=== PATIENT | female | born 1990 | race Caucasian/White ===

== ENCOUNTER 2020-09-21 17:31 | Inpatient (IN) | payer OTHER ==
[2020-09-21] MEDS ORDERED: Sodium Chloride 0.9% 10 ML Syringe FLUSH PRN (19:02)
[2020-09-21] MEDS ORDERED: Ondansetron 4 MG/2 ML SDV IV PRN (19:02)
[2020-09-21] MEDS ORDERED: Calcium Carbonate 500 MG Tab.Chew PO PRN (19:02)
[2020-09-21] MEDS ORDERED: Penicillin G Potassium 5 MILLUNITS in Sodium Chloride 0.9% 50 ML IV ONE (19:11)
[2020-09-21] MEDS ORDERED: fentaNYL 100 MCG/2 ML SDV IVPUSH PRN (19:12)
[2020-09-21] MEDS ORDERED: Lactated Ringers 1,000 ML IV SCH (19:15)
--- NOTE | 2020-09-21 19:53 | PCM.LDHP ---
L&D History of Present Illness - General Date of Service: 09/21/20 Admit Problem/Dx: Patient Status Order with Admit Dx/Problem 09/21/20 19:02 Patient Status [ADT] Routine Admission Diagnosis/Problem Admission Diagnosis/Problem Term Source of Information: Patient History Limitations: Reports: No Limitations - History of Present Illness Introduction:: 09/21/20 Jacquie is a at 40 3/7 weeks in latent labor. AKIL 09/18/20 based off LMP, dates closely matched with 19 week US. She has had very limited clinic based OB care. She has been seeing a home overlock elastic attacher, Bernarda Pack, for this . She states her contractions started at midnight Monday morning. Around 3 am she had a contraction and a small gush of clear fluid. Contractions were anywhere from 3-30 min apart since Monday at midnight and she has continued to leak fluid. She called the overlock elastic attacher to the house today due to exhaustion and continued irregular contractions. A fill in overlock elastic attacher thought her cervix was either 3cm or 10 cm but could not tell and recommended she go to the hospital for evaluation. Patient reports not eating or drinking much since Monday am. She did not have GBS swab done. She did have first trimester labs completed along with an US at 19 weeks gestation that showed no abnormalities but there is limited views of cardiac structures and facial profile. Other labs: Hepatitis B/C/HIV/RPR all non reactive. O positive blood type, negative antibody. Rubella immune. Chlamydia/gonorrhea negative. She reports no complications this other than nausea. She declines any chronic health conditions. She gained 15 lbs this and did random fasting glucose checks, all around 75 she reports. Timing/Duration: Reports: minutes: (7-8) Location, : Reports: Lower back Quality: Reports: Sharp Severity: Moderate Improves with: Reports: Movement, Other (tub) Worsens with: Reports: Immobilization Associated Symptoms: Reports: vaginal bleeding (bloody show after check), vaginal fluid (clear, scant) - Related Data Allergies/Adverse Reactions: Allergies Allergy/AdvReac Type Severity Reaction Status Date / Time nickel Allergy Blisters Verified 09/21/20 17:44 Home Medications: Home Meds 168/Iron/Folic/Omega3 [One-A-Day -1 Softgel] 1 tab PO DAILY 09/21/20 [History] Past Medical History [employer] History: Reports: : 1 Para: 0 LMP (Approximate): H&P Review of Systems - Review of Systems: Review Of Systems: See Below General: Reports: No Symptoms HEENT: Reports: No Symptoms Pulmonary: Reports: No Symptoms Cardiovascular: Reports: No Symptoms Gastrointestinal: Reports: No Symptoms Genitourinary: Reports: No Symptoms Musculoskeletal: Reports: No Symptoms Skin: Reports: No Symptoms Psychiatric: Reports: No Symptoms Neurological: Reports: No Symptoms Hematologic/Lymphatic: Reports: No Symptoms Immunologic: Reports: No Symptoms L&D Exam - Exam Exam: See Below - Vital Signs Vital Signs: Last Vital Signs Temp 36.4 C 09/21/20 18:09 Pulse 69 09/21/20 18:09 Resp 20 09/21/20 18:09 BP 129/79 09/21/20 18:09 Pulse Ox Weight: 136.078 kg - OB Specific Contraction Frequency (min): irreg Contraction Intensity: Mild to Moderate Movement: Active Heart Tones: Present Heart Tones per Min: 135 Heart Rate (FHR) Variability: Moderate (6-25 bmp) Presentation: Vertex - Joy Score Joy Score Cervix Position: Midposition Joy Score Consistency: Soft Joy Score Effacement: >80% Joy Score Dilation: 3-4 cm Joy Score 's Station: -1 ,0 Joy Score Total: 10 - Exam General: Alert, Oriented HEENT: PERRLA, Hearing Intact, Mucosa Moist & [place], Pupils Equal, Pupils Reactive Neck: Supple, Trachea Midline Lungs: Clear to Auscultation, Normal Respiratory Effort Cardiovascular: Regular Rate, Regular Rhythm GI/Abdominal Exam: Normal Bowel Sounds, Soft, Non-Tender, Pelvis Stable Genitourinary: Normal external exam, Normal bimanual exam, Cervical dilitation Back Exam: Normal Inspection, Full Range of Motion Extremities: Normal Inspection, Normal Range of Motion, Non-Tender, Normal Capillary Refill, Pedal Edema (1+) Skin: Warm, Dry, Intact Neurological: Cranial Nerves Intact, Reflexes Equal Bilateral Psychiatric: Alert, Normal Affect, Normal Mood - Patient Data Lab Results Last 24 hrs: Laboratory Results - last 24 hr 09/21/20 09/21/20 09/21/20 Range/Units 17:00 17:54 17:55 WBC (4.5-11.0) K/uL RBC (3.30-5.50) M/uL Hgb (12.0-15.0) g/dL Hct (36.0-48.0) % MCV (80-98) fL MCH (27-31) pg MCHC (32-36) % Plt Count (150-400) K/uL Urine Color Yellow (YELLOW) Urine Appearance Cloudy A (CLEAR) Urine pH 7.0 (5.0-8.0) Ur Specific [place] 1.020 (1.008-1.030) Urine Protein Negative (NEGATIVE) mg/dL Urine Glucose (UA) Negative (NEGATIVE) mg/dL Urine Ketones Negative (NEGATIVE) mg/dL Urine Occult Blood Moderate H (NEGATIVE) Urine Nitrite Negative (NEGATIVE) Urine Bilirubin Negative (NEGATIVE) Urine Urobilinogen 1.0 (0.2-1.0) EU/dL Ur Leukocyte Esterase Small H (NEGATIVE) Urine RBC 0-5 (0-5) Urine WBC 5-10 H (0-5) Ur Epithelial Cells Few Amorphous Sediment Not seen Urine Bacteria Moderate Urine Mucus Not seen Membrane Rupture Positive H (NEGATIVE) Urine Opiates Screen Negative (NEGATIVE) Ur Oxycodone Screen Negative (NEGATIVE) Urine Methadone Screen Negative (NEGATIVE) Ur Propoxyphene Screen Negative (NEGATIVE) Ur Barbiturates Screen Negative (NEGATIVE) Ur Tricyclics Screen Negative (NEGATIVE) Ur Phencyclidine Scrn Negative (NEGATIVE) Ur Amphetamine Screen Negative (NEGATIVE) U Methamphetamines Scrn Negative (NEGATIVE) Urine MDMA Screen Negative (NEGATIVE) U Benzodiazepines Scrn Negative (NEGATIVE) U Cocaine Metab Screen Negative (NEGATIVE) U Marijuana (THC) Screen Presumptive positive H (NEGATIVE) 09/21/20 Range/Units 19:02 WBC 14.1 H (4.5-11.0) K/uL RBC 3.94 (3.30-5.50) M/uL Hgb 10.5 L (12.0-15.0) g/dL Hct 34.3 L (36.0-48.0) % MCV 87 (80-98) fL MCH 27 (27-31) pg MCHC 31 L (32-36) % Plt Count 299 (150-400) K/uL Urine Color (YELLOW) Urine Appearance (CLEAR) Urine pH (5.0-8.0) Ur Specific [place] (1.008-1.030) Urine Protein (NEGATIVE) mg/dL Urine Glucose (UA) (NEGATIVE) mg/dL Urine Ketones (NEGATIVE) mg/dL Urine Occult Blood (NEGATIVE) Urine Nitrite (NEGATIVE) Urine Bilirubin (NEGATIVE) Urine Urobilinogen (0.2-1.0) EU/dL Ur Leukocyte Esterase (NEGATIVE) Urine RBC (0-5) Urine WBC (0-5) Ur Epithelial Cells Amorphous Sediment Urine Bacteria Urine Mucus Membrane Rupture (NEGATIVE) Urine Opiates Screen (NEGATIVE) Ur Oxycodone Screen (NEGATIVE) Urine Methadone Screen (NEGATIVE) Ur Propoxyphene Screen (NEGATIVE) Ur Barbiturates Screen (NEGATIVE) Ur Tricyclics Screen (NEGATIVE) Ur Phencyclidine Scrn (NEGATIVE) Ur Amphetamine Screen (NEGATIVE) U Methamphetamines Scrn (NEGATIVE) Urine MDMA Screen (NEGATIVE) U Benzodiazepines Scrn (NEGATIVE) U Cocaine Metab Screen (NEGATIVE) U Marijuana (THC) Screen (NEGATIVE) Result Diagrams: 09/21/20 19:02 - Problem List (1) GBS screening not performed SNOMED Code(s): 344318575 ICD Code: [id number] - Status: Acute Current Visit: Yes (2) Post term over 40 weeks SNOMED Code(s): 196930344 ICD Code: O48.0 - POST-TERM Status: Acute Current Visit: Yes (3) PROM with onset of labor more than 24 hours following rupture SNOMED Code(s): 517905396 ICD Code: O42.10 - OSIRIS ROM, ONSET LABOR > 24 HR FOL RUPT, UNSP WEEKS OF GEST Status: Acute Current Visit: Yes Qualifiers: PROM gestational age: full term Qualified Code(s): O42.12 - Full-term premature rupture of membranes, onset of labor more than 24 hours following rupture (4) Limited care SNOMED Code(s): 489577203 ICD Code: O09.30 - SUPRVSN OF PREG W INSUFFICIENT ANTENAT CARE, UNSP TRIMESTER Status: Acute Current Visit: Yes Qualifiers: Trimester: third trimester Qualified Code(s): O09.33 - Supervision of with insufficient care, third trimester Problem List Initiated/Reviewed/Updated: Yes Orders Last 24hrs: Active Orders 24 hr Category Date Time Status Patient Status [ADT] Routine ADT 09/21/20 19:02 Ordered Communication Order [RC] ASDIRECTED Care 09/21/20 19:02 Ordered Heart Tones [RC] PER UNIT ROUTINE Care 09/21/20 19:02 Ordered Notify Provider Vital Signs [RC] PRN Care 09/21/20 19:04 Ordered Notify Provider [RC] PRN Care 09/21/20 19:02 Ordered OB Check [OM.PC] Click to Edit Care 09/21/20 17:53 Ordered Up ad Allegra [RC] ASDIRECTED Care 09/21/20 19:02 Ordered VTE/DVT Education [RC] Click to Edit Care 09/21/20 19:04 Ordered Vital Signs [RC] PER UNIT ROUTINE Care 09/21/20 19:02 Ordered Regular Diet [DIET] Diet 09/21/20 Dinner Ordered CORONAVIRUS COVID-19 RAPID [MOLEC] Stat Lab 09/21/20 19:15 Ordered Calcium Carbonate [Tums] Med 09/21/20 19:02 Ordered 1,000 mg PO Q2HR PRN Lactated Ringers @ 125 MLS/HR(1000ml) Med 09/21/20 19:15 Ordered Lactated Ringers [Ringers, Lactated] 1,000 ml IV ASDIRECTED Ondansetron [Zofran] Med 09/21/20 19:02 Ordered 4 mg IV Q4H PRN Oxytocin/Normal Saline [Pitocin in NS 20 Units/1,000 ML Med 09/21/20 19:15 Ordered ] 20 unit in 1,000 ml IV TITRATE Penicillin G Potassium [Pfizerpen] 2.5 millunits Med 09/21/20 23:15 Ordered Sodium Chloride 0.9% [Normal Saline] 50 ml IV Q4H Sodium Chloride 0.9% [Saline Flush] Med 09/21/20 19:02 Ordered 10 ml FLUSH ASDIRECTED PRN fentaNYL [Sublimaze] Med 09/21/20 19:12 Ordered 100 mcg IVPUSH Q1H PRN DVT/VTE Prophylaxis Reflex [OM.PC] Routine Oth 09/21/20 19:02 Ordered Saline Lock Insert [OM.PC] Routine Oth 09/21/20 19:02 Ordered Resuscitation Status Routine Resus Stat 09/21/20 19:02 Ordered Medication Orders Calcium Carbonate/Glycine (Calcium Carbonate 500 Mg Tab.Chew) 1,000 mg PO Q2H PRN PRN Reason: Indigestion Fentanyl (Fentanyl 100 Mcg/2 Ml Sdv) 100 mcg IVPUSH Q1H PRN PRN Reason: Pain (moderate 4-6) Lactated Ringer's (Ringers, Lactated) 1,000 mls @ 125 mls/hr IV ASDIRECTED DON Oxytocin/Sodium Chloride (Pitocin In Ns 20 Units/1,000 Ml) 20 unit in 1,000 mls @ 6 mls/hr IV TITRATE DON; Protocol Penicillin G Potassium 2.5 (millunits/ Sodium Chloride) 50 mls @ 100 mls/hr IV Q4H DON Ondansetron HCl (Ondansetron 4 Mg/2 Ml Sdv) 4 mg IV Q4H PRN PRN Reason: Nausea/Vomiting Sodium Chloride (Sodium Chloride 0.9% 10 Ml Syringe) 10 ml FLUSH ASDIRECTED PRN PRN Reason: Keep Vein Open Assessment/Plan Comment:: 09/21/20 Assessment: here with prolonged ROM from a home setting at 40 3/7 Rupture occurred about 63 hours ago FHT's category 1 Afebrile Contractions every 8 minutes, moderate SVE 3/100/-1 Plan: Discussion with patient recommending she stay in the hospital and she agrees. She also agrees to penicillin for unknown GBS and prolonged rupture of membranes. She also is counseled on pitocin titration for initiation of active labor due to prolonged rupture and she agrees. She would like to go as long as she can without pain medications. Plan will be to monitor closely for s/s of infection, start antibiotics and fluids, and start pitocin titration to get contractions 2-3 minutes apart.
[2020-09-21] MEDS: Penicillin G Potassium 2.5 MILLUNITS in Sodium Chloride 0.9% 50 ML IV SCH (22:58)
[2020-09-21] MEDS ORDERED: Carboprost Tromethamine 250 MCG/1 ML Amp ONE (23:12)
[2020-09-21] MEDS ORDERED: Methylergonovine 0.2 MG/1 ML Amp ONE (23:12)
[2020-09-21] MEDS ORDERED: Misoprostol 200 MCG Tab ONE (23:12)
--- NOTE | 2020-09-21 23:48 | PCM.PNLD ---
Labor Progress Note - VS & Meds Vital Signs: Last Vital Signs Temp 36.6 C 09/21/20 22:30 Pulse 71 09/21/20 22:30 Resp 18 09/21/20 22:30 BP 148/76 H 09/21/20 22:30 Pulse Ox Active Medications: Current Medications Calcium Carbonate/Glycine (Calcium Carbonate 500 Mg Tab.Chew) 1,000 mg PO Q2H PRN PRN Reason: Indigestion Last Admin: 09/21/20 23:05 Dose: 1,000 mg Documented by: Fentanyl (Fentanyl 100 Mcg/2 Ml Sdv) 100 mcg IVPUSH Q1H PRN PRN Reason: Pain (moderate 4-6) Lactated Ringer's (Ringers, Lactated) 1,000 mls @ 125 mls/hr IV ASDIRECTED [facility] Last Admin: 09/21/20 20:39 Dose: 125 mls/hr Documented by: Oxytocin/Sodium Chloride (Pitocin In Ns 20 Units/1,000 Ml) 20 unit in 1,000 mls @ 6 mls/hr IV TITRATE DON; Protocol Last Titration: 09/21/20 23:33 Dose: 3 munits/min, 9 mls/hr Documented by: Penicillin G Potassium 2.5 (millunits/ Sodium Chloride) 50 mls @ 100 mls/hr IV Q4H DON Last Admin: 09/21/20 22:58 Dose: 100 mls/hr Documented by: Ondansetron HCl (Ondansetron 4 Mg/2 Ml Sdv) 4 mg IV Q4H PRN PRN Reason: Nausea/Vomiting Last Admin: 09/21/20 21:00 Dose: 4 mg Documented by: Sodium Chloride (Sodium Chloride 0.9% 10 Ml Syringe) 10 ml FLUSH ASDIRECTED PRN PRN Reason: Keep Vein Open Discontinued Medications Carboprost Tromethamine (Carboprost Tromethamine 250 Mcg/1 Ml Amp) Confirm Administered Dose 250 mcg .ROUTE .STK-MED ONE Stop: 09/21/20 23:13 Penicillin G Potassium 5 (millunits/ Sodium Chloride) 50 mls @ 100 mls/hr IV ONETIME ONE Stop: 09/21/20 19:40 Last Admin: 09/21/20 20:05 Dose: 100 mls/hr Documented by: Methylergonovine Maleate (Methylergonovine 0.2 Mg/1 Ml Amp) Confirm Administered Dose 0.2 mg .ROUTE .STK-MED ONE Stop: 09/21/20 23:13 Misoprostol (Misoprostol 200 Mcg Tab) Confirm Administered Dose 800 mcg .ROUTE .STK-MED ONE Stop: 09/21/20 23:13 - Uterine Contractions Uterine Monitoring Mode: External [place] Contraction Frequency (min): 2 Contraction Duration (sec): 50-80 Contraction Intensity: Moderate Uterine Resting Tone: Soft Other Uterine Monitoring: Novii applied - Monitoring Monitor Mode: External Ultrasound Heart Rate (FHR) Variability: Moderate (6-25 bmp) Accelerations: Present, 15x15 Decelerations: Early Strip Review: Category I - Vaginal Exam Dilation (cm): 6 Effacement (Percent): 100 Station: -1 Cervical Position: Midposition - Labor Progress (Free Text) Labor Progress: 09/21/20 Patient started using nitrous oxide around 2230 for pain control, at that time she was 4-5/100/-1. She is currently on 3 mu of pitocin and contractions are every 2 minutes. FHT's are category 1, moderate variability with accelerations, mild early decelerations with a rare variable. SVE currently 6/100/-1, moderate caput felt. Patient is apprehensive to change positions and needs lots of encouragement to move. She has tried high chair position and is now standing in the room. Encouraging hands and knees, tub, and lots of movement. She does not desire an epidural. She remains afebrile and fluid remains clear. Of note, she was THC positive.
[2020-09-22] MEDS ORDERED: ePHEDrine 50 MG/ML SDV IVPUSH PRN (02:05)
[2020-09-22] MEDS ORDERED: Lactated Ringers 1,000 ML IV ONE (02:05)
--- NOTE | 2020-09-22 02:28 | PCM.PNLD ---
Labor Progress Note - VS & Meds Vital Signs: Last Vital Signs Temp 36.0 C L 09/21/20 23:30 Pulse 71 09/21/20 22:30 Resp 18 09/21/20 22:30 BP 148/76 H 09/21/20 22:30 Pulse Ox Active Medications: Current Medications Calcium Carbonate/Glycine (Calcium Carbonate 500 Mg Tab.Chew) 1,000 mg PO Q2H PRN PRN Reason: Indigestion Last Admin: 09/21/20 23:05 Dose: 1,000 mg Documented by: Ephedrine Sulfate (Ephedrine 50 Mg/Ml Sdv) 10 mg IVPUSH ASDIRECTED PRN PRN Reason: Hypotension Fentanyl (Fentanyl 100 Mcg/2 Ml Sdv) 100 mcg IVPUSH Q1H PRN PRN Reason: Pain (moderate 4-6) Lactated Ringer's (Ringers, Lactated) 1,000 mls @ 125 mls/hr IV ASDIRECTED DON Last Admin: 09/21/20 20:39 Dose: 125 mls/hr Documented by: Oxytocin/Sodium Chloride (Pitocin In Ns 20 Units/1,000 Ml) 20 unit in 1,000 mls @ 6 mls/hr IV TITRATE [facility]; Protocol Last Titration: 09/21/20 23:33 Dose: 3 munits/min, 9 mls/hr Documented by: Penicillin G Potassium 2.5 (millunits/ Sodium Chloride) 50 mls @ 100 mls/hr IV Q4H DON Last Admin: 09/21/20 22:58 Dose: 100 mls/hr Documented by: Lactated Ringer's (Ringers, Lactated) 1,000 mls @ 999 mls/hr IV .BOLUS ONE Stop: 09/22/20 03:05 Ondansetron HCl (Ondansetron 4 Mg/2 Ml Sdv) 4 mg IV Q4H PRN PRN Reason: Nausea/Vomiting Last Admin: 09/21/20 21:00 Dose: 4 mg Documented by: Sodium Chloride (Sodium Chloride 0.9% 10 Ml Syringe) 10 ml FLUSH ASDIRECTED PRN PRN Reason: Keep Vein Open Discontinued Medications Carboprost Tromethamine (Carboprost Tromethamine 250 Mcg/1 Ml Amp) Confirm Administered Dose 250 mcg .ROUTE .STK-MED ONE Stop: 09/21/20 23:13 Penicillin G Potassium 5 (millunits/ Sodium Chloride) 50 mls @ 100 mls/hr IV ONETIME ONE Stop: 09/21/20 19:40 Last Admin: 09/21/20 20:05 Dose: 100 mls/hr Documented by: Methylergonovine Maleate (Methylergonovine 0.2 Mg/1 Ml Amp) Confirm Administered Dose 0.2 mg .ROUTE .STK-MED ONE Stop: 09/21/20 23:13 Misoprostol (Misoprostol 200 Mcg Tab) Confirm Administered Dose 800 mcg .ROUTE .STK-MED ONE Stop: 09/21/20 23:13 - Uterine Contractions Uterine Monitoring Mode: External [place] Contraction Frequency (min): 1-3 Contraction Duration (sec): 30-60 Contraction Intensity: Moderate to Strong Uterine Resting Tone: Soft Other Uterine Monitoring: Novii applied - Monitoring Monitor Mode: External Ultrasound Heart Rate (FHR) Variability: Moderate (6-25 bmp) Accelerations: Prolonged Accelerations (>2x10 min) Decelerations: Early, Variable Strip Review: Category I - Vaginal Exam Dilation (cm): 7 Effacement (Percent): 100 Station: 0 Cervical Position: Midposition Sterile Vaginal Exam Performed By: Lawanda Licona - Labor Progress (Free Text) Labor Progress: 09/22/20 Patient has made slow cervical change with nice contraction pattern. Baby has come down some since last check by myself. SVE 7/100/0. She is very tense and unable to relax or breath adequately through contractions. She agrees to an epidural. Category 2 tracing, baseline still seems 130-140 and there is great variability but we are having prolonged accelerations, early decelerations, and some variable decelerations. Fluid bolus started, nitrous stopped for epidural. The fluid bolus seems to have helped the tracing and this is being monitored closely.
[2020-09-22] MEDS ORDERED: Ropivacaine 100 ML ONE (03:09)
--- NOTE | 2020-09-22 03:35 | ANES ---
DATE OF SERVICE: 09/22/2020 Jacquie is a 30-year-old female, patient of Lawanda Licona in our obstetric unit. She is here today, , in labor. I was requested to consult for labor epidural placement. Upon arrival, I found a healthy 30-year-old female, obese patient. I discussed with her history, found no contraindication to epidural placement with history as well as lab work. Discussed with her in depth the procedure as well as risks and benefits. She was okay to proceed and consent was received. I had her seated at the edge of the bed. Betadine prep x3 to lumbar region. Sterile drape was placed, 1% lidocaine skin wheal as well as deep at the L4-L5 region. I was unable to access loss of resistance due to bony structure. I then repositioned the patient and attempted at L3-L4. I was able to find loss of resistance. Negative CSF, negative heme, negative paresthesia. I inserted the catheter to 12 cm at the skin. I then dosed the patient with a test dose of 3 mL of 1% lidocaine and 1:200,000 epinephrine. The catheter was then secured to her back. She was placed in the prone position. After negative sequelae from the test dose, I dosed her with 12 mL of 0.2% ropivacaine and began the same infusion of that same 0.2% ropivacaine. She tolerated the procedure quite well. Please refer to nurse's notes for vital signs and neuro status, which were unchanged, within normal limits. I reported off to the nursing staff the dose as well as the sterile procedure. Thank you for consult. Abdelrahman Landaverde CRNA /[id number]
[2020-09-22] MEDS: Penicillin G Potassium 2.5 MILLUNITS in Sodium Chloride 0.9% 50 ML IV SCH ×2 (04:30→08:34)
--- NOTE | 2020-09-22 05:48 | PCM.PNLD ---
Labor Progress Note - VS & Meds Vital Signs: Last Vital Signs Temp 36.0 C L 09/21/20 23:30 Pulse 71 09/21/20 22:30 Resp 18 09/21/20 22:30 BP 148/76 H 09/21/20 22:30 Pulse Ox Active Medications: Current Medications Calcium Carbonate/Glycine (Calcium Carbonate 500 Mg Tab.Chew) 1,000 mg PO Q2H PRN PRN Reason: Indigestion Last Admin: 09/21/20 23:05 Dose: 1,000 mg Documented by: Ephedrine Sulfate (Ephedrine 50 Mg/Ml Sdv) 10 mg IVPUSH ASDIRECTED PRN PRN Reason: Hypotension Fentanyl (Fentanyl 100 Mcg/2 Ml Sdv) 100 mcg IVPUSH Q1H PRN PRN Reason: Pain (moderate 4-6) Lactated Ringer's (Ringers, Lactated) 1,000 mls @ 125 mls/hr IV ASDIRECTED DON Last Admin: 09/21/20 20:39 Dose: 125 mls/hr Documented by: Oxytocin/Sodium Chloride (Pitocin In Ns 20 Units/1,000 Ml) 20 unit in 1,000 mls @ 6 mls/hr IV TITRATE [facility]; Protocol Last Titration: 09/21/20 23:33 Dose: 3 munits/min, 9 mls/hr Documented by: Penicillin G Potassium 2.5 (millunits/ Sodium Chloride) 50 mls @ 100 mls/hr IV Q4H DON Last Admin: 09/22/20 04:30 Dose: 100 mls/hr Documented by: Ondansetron HCl (Ondansetron 4 Mg/2 Ml Sdv) 4 mg IV Q4H PRN PRN Reason: Nausea/Vomiting Last Admin: 09/21/20 21:00 Dose: 4 mg Documented by: Sodium Chloride (Sodium Chloride 0.9% 10 Ml Syringe) 10 ml FLUSH ASDIRECTED PRN PRN Reason: Keep Vein Open Discontinued Medications Carboprost Tromethamine (Carboprost Tromethamine 250 Mcg/1 Ml Amp) Confirm Administered Dose 250 mcg .ROUTE .STK-MED ONE Stop: 09/21/20 23:13 Penicillin G Potassium 5 (millunits/ Sodium Chloride) 50 mls @ 100 mls/hr IV ONETIME ONE Stop: 09/21/20 19:40 Last Admin: 09/21/20 20:05 Dose: 100 mls/hr Documented by: Lactated Ringer's (Ringers, Lactated) 1,000 mls @ 999 mls/hr IV .BOLUS ONE Stop: 09/22/20 03:05 Last Admin: 09/22/20 02:30 Dose: 999 mls/hr Documented by: Ropivacaine (Naropin 0.2%) Confirm Administered Dose 100 mls @ as directed .ROUTE .STK-MED ONE Stop: 09/22/20 03:10 Methylergonovine Maleate (Methylergonovine 0.2 Mg/1 Ml Amp) Confirm Administered Dose 0.2 mg .ROUTE .STK-MED ONE Stop: 09/21/20 23:13 Misoprostol (Misoprostol 200 Mcg Tab) Confirm Administered Dose 800 mcg .ROUTE .STK-MED ONE Stop: 09/21/20 23:13 - Uterine Contractions Uterine Monitoring Mode: External [place] Contraction Frequency (min): 1-3 Contraction Duration (sec): 30-60 Contraction Intensity: Moderate to Strong Uterine Resting Tone: Soft Other Uterine Monitoring: Novii applied - Monitoring Monitor Mode: External Ultrasound Heart Rate (FHR) Variability: Moderate (6-25 bmp) Accelerations: Present, 15x15 Decelerations: Early, Variable Strip Review: Category II - Vaginal Exam Dilation (cm): 10 Effacement (Percent): 100 Station: 1 Cervical Position: Midposition Sterile Vaginal Exam Performed By: Lawanda Licona - Labor Progress (Free Text) Labor Progress: 09/22/20 Patient has been pushing for just over two hours. We were not able to labor down when complete due to two late variable decelerations. She has made slow progress in descent. FHT's have been between category 1 and 2 while pushing as expected, overall baby tolerating well with moderate variability. It is difficult for patient to move positions due to epidural and body habitus. Epidural quite dense so turned down during pushing. Taking a short break in pushing now to let patient labor down and then will resume when she is ready to push or has the urge. Contraction pattern has been very irregular likely due to uterine fatigue, there are no s/s of uterine infection. Pitocin has been turned off and restarted due to intolerance. Continue to monitor for descent and tolerance of labor.
[2020-09-22] MEDS ORDERED: Docusate Sodium 100 MG Cap PO PRN (07:21)
[2020-09-22] MEDS ORDERED: Acetaminophen 325 MG Tab, 50 Tab Bulk Bottle PO PRN (07:21)
[2020-09-22] MEDS ORDERED: Ibuprofen 200 MG Tab, 24 Tab Bulk Bottle PO PRN (07:21)
[2020-09-22] MEDS ORDERED: Lanolin 100% Cream 40 GM Tube TOP PRN (07:21)
[2020-09-22] MEDS ORDERED: Witch Hazel Medicated Pads 100/Jar TOP ONE (08:00)
[2020-09-22] MEDS ORDERED: Benzocaine 20% Top Spray 56 GM Bottle TOP ONE (08:00)
[2020-09-22] MEDS ORDERED: Benzocaine 20% Top Spray 56 GM Bottle TOP PRN (08:30)
--- NOTE | 2020-09-22 14:42 | PCM.DEL ---
L & D Note - General Info Date of Service: 09/22/20 Mother's Due Date: 09/18/20 - Delivery Note Labor: Augmented by Oxytocin Cervical Ripening Method: Oxytocin Delivery Outcome: Livebirth Delivery Method: Spontaneous Vaginal Delivery-Single Infant Delivery Mode: Spontaneous Presentation: Right Occiput Posterior (ROP) Nuchal Cord: None Anesthesia Type: Epidural, Nitrous Oxide Episiotomy Type: None Laceration: 2nd Degree, Vaginal Suture type: Vicryl Suture size: 4-0 Placenta: Intact (side cord insertion), Spontaneous Cord: 3 Vessels Estimated Blood Loss: 200 Resuscitation Needed: No [place]: Stimulated Provider: Lawanda Licona Score 1 min: 8 Score 5 min: 9 Second Stage Interventions: Reports: Second Nurse Assessed Progress of Descent, Second Nurse Reviewed Contraction Pattern, Second Nurse Reviewed Heart Tones, Encouragement Given, Laboring Down, Pushing Ineffectively, Pushing, Feet in Foot Rests, Pushing, Left Side, Pushing, McRobert's Position, Pushing, Right Side, Pushing, Squat Bar Pulling on Device, Pushing, Squat Bar Pulling on Sheet, Pushing, Stirrups/Leg Supports Delivery Comments (Free Text/Narrative):: 09/22/20 30 yo G1 now P1 delivered a viable male infant at 0644 this morning at 40 4/7 weeks gestation. She had prelabor rupture of membranes 09/19/20 around 0300 and had prodromal labor since that time. She was planning a home and stayed home until last evening when she was feeling exhausted so came into the hospital. Fluid was clear, no s/s of infection, fluid clear. She agreed to pitocin on admission for contractions that were 7-8 minutes apart and only being 3 cm dilated. She did progress slowly through the night with low dose pitocin. She used nitrous oxide until she got to about 7 cm when she requested an epidural. After this was placed she quickly relaxed and went to complete. She pushed for about 3 hours and 15 minutes in several positions. Descent was slow but baby was tolerating pushing well so we continued. She delivered a male in ROP position. He was placed on her chest and cried spontaneously, delayed cord clamping done for 8 minutes per mothers request. Apgars 8, 9. Asynclitic caput present. Unknown GBS, 3 doses Penicillin given. Placenta delivered intact, spontaneously, Wheat at 0650, 3 vessel cord, side cord insertion, healthy appearing otherwise. EBL 200 ml. 2nd degree vaginal laceration repaired with 4-0 vicryl. No perineal or cervical lacerations. Cord sent for evaluation of drugs due to mother THC positive, mother aware. Baby weight 6 lb 3 oz. Mother and baby in stable condition. Stages of labor: 1:[id number] 2: 3: [id number] Induction Criteria - Augmentation Estimated Pelvis: Reports: Adequate Weight Estimated:: Reports: AGA Estimated Weight if LGA: 3.175 kg Reassuring Monitoring Strip: Yes Absence of Tachy Systole: Yes - General Info Date of Service: 09/22/20 Functional Status: Reports: Pain Controlled - Review of Systems General: Reports: No Symptoms HEENT: Reports: No Symptoms Pulmonary: Reports: No Symptoms Cardiovascular: Reports: No Symptoms Gastrointestinal: Reports: No Symptoms Genitourinary: Reports: No Symptoms Musculoskeletal: Reports: No Symptoms Skin: Reports: No Symptoms Neurological: Reports: No Symptoms Psychiatric: Reports: No Symptoms - Patient Data Vitals - Most Recent: Last Vital Signs Temp 36.0 C L 09/22/20 11:43 Pulse 75 09/22/20 11:43 Resp 16 09/22/20 11:43 BP 137/74 09/22/20 11:43 Pulse Ox 98 09/22/20 11:43 Weight - Most Recent: 136.078 kg I&O - Last 24 Hours: Intake & Output 09/21/20 09/22/20 09/22/20 22:59 06:59 14:59 Intake Total 100 Output Total Balance 10@ Lab Results Last 24 Hours: Laboratory Results - last 24 hr 09/21/20 09/21/20 09/21/20 Range/Units 17:00 17:54 17:55 WBC (4.5-11.0) K/uL RBC (3.30-5.50) M/uL Hgb (12.0-15.0) g/dL Hct (36.0-48.0) % MCV (80-98) fL MCH (27-31) pg MCHC (32-36) % Plt Count (150-400) K/uL Urine Color Yellow (YELLOW) Urine Appearance Cloudy A (CLEAR) Urine pH 7.0 (5.0-8.0) Ur Specific [place] 1.020 (1.008-1.030) Urine Protein Negative (NEGATIVE) mg/dL Urine Glucose (UA) Negative (NEGATIVE) mg/dL Urine Ketones Negative (NEGATIVE) mg/dL Urine Occult Blood Moderate H (NEGATIVE) Urine Nitrite Negative (NEGATIVE) Urine Bilirubin Negative (NEGATIVE) Urine Urobilinogen 1.0 (0.2-1.0) EU/dL Ur Leukocyte Esterase Small H (NEGATIVE) Urine RBC 0-5 (0-5) Urine WBC 5-10 H (0-5) Ur Epithelial Cells Few Amorphous Sediment Not seen Urine Bacteria Moderate Urine Mucus Not seen Membrane Rupture Positive H (NEGATIVE) Urine Opiates Screen Negative (NEGATIVE) Ur Oxycodone Screen Negative (NEGATIVE) Urine Methadone Screen Negative (NEGATIVE) Ur Propoxyphene Screen Negative (NEGATIVE) Ur Barbiturates Screen Negative (NEGATIVE) Ur Tricyclics Screen Negative (NEGATIVE) Ur Phencyclidine Scrn Negative (NEGATIVE) Ur Amphetamine Screen Negative (NEGATIVE) U Methamphetamines Scrn Negative (NEGATIVE) Urine MDMA Screen Negative (NEGATIVE) U Benzodiazepines Scrn Negative (NEGATIVE) U Cocaine Metab Screen Negative (NEGATIVE) U Marijuana (THC) Screen Presumptive positive H (NEGATIVE) SARS CoV-2 RNA Rapid MARLENY 09/21/20 09/21/20 Range/Units 19:02 19:15 WBC 14.1 H (4.5-11.0) K/uL RBC 3.94 (3.30-5.50) M/uL Hgb 10.5 L (12.0-15.0) g/dL Hct 34.3 L (36.0-48.0) % MCV 87 (80-98) fL MCH 27 (27-31) pg MCHC 31 L (32-36) % Plt Count 299 (150-400) K/uL Urine Color (YELLOW) Urine Appearance (CLEAR) Urine pH (5.0-8.0) Ur Specific [place] (1.008-1.030) Urine Protein (NEGATIVE) mg/dL Urine Glucose (UA) (NEGATIVE) mg/dL Urine Ketones (NEGATIVE) mg/dL Urine Occult Blood (NEGATIVE) Urine Nitrite (NEGATIVE) Urine Bilirubin (NEGATIVE) Urine Urobilinogen (0.2-1.0) EU/dL Ur Leukocyte Esterase (NEGATIVE) Urine RBC (0-5) Urine WBC (0-5) Ur Epithelial Cells Amorphous Sediment Urine Bacteria Urine Mucus Membrane Rupture (NEGATIVE) Urine Opiates Screen (NEGATIVE) Ur Oxycodone Screen (NEGATIVE) Urine Methadone Screen (NEGATIVE) Ur Propoxyphene Screen (NEGATIVE) Ur Barbiturates Screen (NEGATIVE) Ur Tricyclics Screen (NEGATIVE) Ur Phencyclidine Scrn (NEGATIVE) Ur Amphetamine Screen (NEGATIVE) U Methamphetamines Scrn (NEGATIVE) Urine MDMA Screen (NEGATIVE) U Benzodiazepines Scrn (NEGATIVE) U Cocaine Metab Screen (NEGATIVE) U Marijuana (THC) Screen (NEGATIVE) SARS CoV-2 RNA Rapid MARLENY Negative Med Orders - Current: Current Medications Acetaminophen (Acetaminophen 325 Mg Tab, 50 Tab Bulk Bottle) 0 mg PO Q4H PRN PRN Reason: Pain Benzocaine (Benzocaine 20% Top [place] 56 Gm Bottle) 0 gm TOP Q4H PRN PRN Reason: PERINEAL PAIN Calcium Carbonate/Glycine (Calcium Carbonate 500 Mg Tab.Chew) 1,000 mg PO Q2H PRN PRN Reason: Indigestion Last Admin: 09/21/20 23:05 Dose: 1,000 mg Documented by: Docusate Sodium (Docusate Sodium 100 Mg Cap) 100 mg PO BID PRN PRN Reason: Constipation Emollient Ointment (Lanolin 100% Cream 40 Gm Tube) 0 gm TOP ASDIRECTED PRN PRN Reason: Other Lactated Ringer's (Ringers, Lactated) 1,000 mls @ 125 mls/hr IV ASDIRECTED DON Last Admin: 09/21/20 20:39 Dose: 125 mls/hr Documented by: Oxytocin/Sodium Chloride (Pitocin In Ns 20 Units/1,000 Ml) 20 unit in 1,000 mls @ 6 mls/hr IV TITRATE DON; Protocol Last Titration: 09/21/20 23:33 Dose: 3 munits/min, 9 mls/hr Documented by: Ibuprofen (Ibuprofen 200 Mg Tab, 24 Tab Bulk Bottle) 600 mg PO Q6H PRN PRN Reason: Pain Ondansetron HCl (Ondansetron 4 Mg/2 Ml Sdv) 4 mg IV Q4H PRN PRN Reason: Nausea/Vomiting Last Admin: 09/21/20 21:00 Dose: 4 mg Documented by: Sodium Chloride (Sodium Chloride 0.9% 10 Ml Syringe) 10 ml FLUSH ASDIRECTED PRN PRN Reason: Keep Vein Open Discontinued Medications Benzocaine (Benzocaine 20% Top [place] 56 Gm Bottle) 0 gm TOP ONETIME ONE Stop: 09/22/20 08:01 Last Admin: 09/22/20 09:57 Dose: Not Given Documented by: Carboprost Tromethamine (Carboprost Tromethamine 250 Mcg/1 Ml Amp) Confirm Administered Dose 250 mcg .ROUTE .STK-MED ONE Stop: 09/21/20 23:13 Last Admin: 09/22/20 08:34 Dose: Not Given Documented by: Ephedrine Sulfate (Ephedrine 50 Mg/Ml Sdv) 10 mg IVPUSH ASDIRECTED PRN PRN Reason: Hypotension Fentanyl (Fentanyl 100 Mcg/2 Ml Sdv) 100 mcg IVPUSH Q1H PRN PRN Reason: Pain (moderate 4-6) Penicillin G Potassium 5 (millunits/ Sodium Chloride) 50 mls @ 100 mls/hr IV ONETIME ONE Stop: 09/21/20 19:40 Last Admin: 09/21/20 20:05 Dose: 100 mls/hr Documented by: Penicillin G Potassium 2.5 (millunits/ Sodium Chloride) 50 mls @ 100 mls/hr IV Q4H DON Last Admin: 09/22/20 08:34 Dose: Not Given Documented by: Lactated Ringer's (Ringers, Lactated) 1,000 mls @ 999 mls/hr IV .BOLUS ONE Stop: 09/22/20 03:05 Last Admin: 09/22/20 02:30 Dose: 999 mls/hr Documented by: Ropivacaine (Naropin 0.2%) Confirm Administered Dose 100 mls @ as directed .ROUTE .STK-MED ONE Stop: 09/22/20 03:10 Methylergonovine Maleate (Methylergonovine 0.2 Mg/1 Ml Amp) Confirm Administered Dose 0.2 mg .ROUTE .STK-MED ONE Stop: 09/21/20 23:13 Last Admin: 09/22/20 08:34 Dose: Not Given Documented by: Misoprostol (Misoprostol 200 Mcg Tab) Confirm Administered Dose 800 mcg .ROUTE .STK-MED ONE Stop: 09/21/20 23:13 Last Admin: 09/22/20 08:34 Dose: Not Given Documented by: Zaire L[place] (Witch Chaya Medicated Pads 100/Jar) 1 pad TOP ONETIME ONE Stop: 09/22/20 08:01 Last Admin: 09/22/20 09:57 Dose: Not Given Documented by: - Exam Urinary Catheter Total Time: 0Days 5Hours General: Alert, Oriented HEENT: Pupils Equal, Pupils Reactive, EOMI, Mucous Membr. Moist/[place] Neck: Supple Lungs: Clear to Auscultation, Normal Respiratory Effort Cardiovascular: Regular Rate, Regular Rhythm GI/Abdominal Exam: Normal Bowel Sounds, Soft, Non-Tender, Pelvis Stable (Female) Exam: Normal External Exam, Normal Bimanual Exam, Cervical Dilatation, Vaginal Bleeding Back Exam: Normal Inspection, Full Range of Motion Extremities: Normal Inspection, Normal Range of Motion, Non-Tender, No Pedal Edema, Normal Capillary Refill Skin: Warm, Dry, Intact Wound/Incisions: Healing Well Neurological: No New Focal Deficit Psy/Mental Status: Alert, Normal Affect, Normal Mood - Problem List & Annotations (1) GBS screening not performed SNOMED Code(s): 465097283 Code(s): OOH5672 - Status: Acute Current Visit: Yes (2) Post term over 40 weeks SNOMED Code(s): 006577872 Code(s): O48.0 - POST-TERM Status: Acute Current Visit: Yes (3) PROM with onset of labor more than 24 hours following rupture SNOMED Code(s): 094989903 Code(s): O42.10 - OSIRIS ROM, ONSET LABOR > 24 HR FOL RUPT, UNSP WEEKS OF GEST Status: Acute Current Visit: Yes Qualifiers: PROM gestational age: full term Qualified Code(s): O42.12 - Full-term premature rupture of membranes, onset of labor more than 24 hours following rupture (4) Limited care SNOMED Code(s): 800092473 Code(s): O09.30 - SUPRVSN OF PREG W INSUFFICIENT ANTENAT CARE, UNSP TRIMESTER Status: Acute Current Visit: Yes Qualifiers: Trimester: third trimester Qualified Code(s): O09.33 - Supervision of with insufficient care, third trimester (5) Obstetric vaginal laceration SNOMED Code(s): 434272567 Code(s): O71.4 - OBSTETRIC HIGH VAGINAL LACERATION ALONE Status: Acute Current Visit: Yes Qualifiers: Perineal laceration presence: without perineal laceration Qualified Code(s): O71.4 - Obstetric high vaginal laceration alone (6) started SNOMED Code(s): 911809317 Code(s): WHW4646 - Status: Acute Current Visit: Yes - Problem List Review Problem List Initiated/Reviewed/Updated: Yes - My Orders Last 24 Hours: My Active Orders 09/21/20 Dinner Regular Diet [DIET] 09/21/20 17:53 OB Check [OM.PC] Click To Edit 09/21/20 19:02 Patient Status [ADT] Routine Up ad Allegra [RC] ASDIRECTED Calcium Carbonate [Tums] 1,000 mg PO Q2H PRN Ondansetron [Zofran] 4 mg IV Q4H PRN Sodium Chloride 0.9% [Saline Flush] 10 ml FLUSH ASDIRECTED PRN DVT/VTE Prophylaxis Reflex [OM.PC] Routine Saline Lock Insert [OM.PC] Routine Resuscitation Status Routine 09/21/20 19:04 Notify Provider Vital Signs [RC] PRN 09/21/20 19:15 Lactated Ringers [Ringers, Lactated] 1,000 ml IV ASDIRECTED Oxytocin/Normal Saline [Pitocin in NS 20 Units/1,000 ML] 20 unit in 1,000 ml IV TITRATE 09/22/20 02:05 Epidural Catheter Management [OM.PC] Urgent 09/22/20 02:15 Insert Urinary Catheter [OM.PC] ASDIRECTED 09/22/20 07:21 Patient Status [ADT] Routine Vital Signs [RC] Q4H Consult to Licensed Practical Nurse [CONS] Routine Acetaminophen [Tylenol Bulk Bottle] See Dose Instructions PO Q4H PRN Docusate Sodium [Colace] 100 mg PO BID PRN Ibuprofen [Motrin Bulk Bottle] 600 mg PO Q6H PRN Lanolin [Lansinoh HPA] 0 gm TOP ASDIRECTED PRN Assess Lochia [WOMSER] Per Unit Routine Assess Uterine Involution [WOMSER] Per Unit Routine 09/22/20 07:23 Ice Therapy [OM.PC] Per Unit Routine Perineal Care [OM.PC] Per Unit Routine Sitz Bath [OM.PC] Per Unit Routine 09/22/20 08:30 Benzocaine [Aeij-H-Cdrnzjx 20% [place]] 0 gm TOP Q4H PRN 09/23/20 05:11 CBC WITH AUTO DIFF [HEME] AM - Assessment Assessment:: 09/22/20 with vaginal delivery of ROP baby at 0644 2nd degree vaginal laceration without perineal laceration, repaired EBL 200 ml THC positive Limited care Refusing vaccinations O positive blood type Unknown GBS, 2 doses IV Abx given Plan: Routine cares and consult Anticipate 24-48 hour stay, patient being somewhat resistant to staying the full recommended stay - Plan Plan:: 09/21/20 Assessment: here with prolonged ROM from a home setting at 40 3/7 Rupture occurred about 63 hours ago FHT's category 1 Afebrile Contractions every 8 minutes, moderate SVE 3/100/-1 Plan: Discussion with patient recommending she stay in the hospital and she agrees. She also agrees to penicillin for unknown GBS and prolonged rupture of membranes. She also is counseled on pitocin titration for initiation of active labor due to prolonged rupture and she agrees. She would like to go as long as she can without pain medications. Plan will be to monitor closely for s/s of infection, start antibiotics and fluids, and start pitocin titration to get contractions 2-3 minutes apart.
--- NOTE | 2020-09-22 16:44 | PCM.PNPP ---
- General Info Date of Service: 09/22/20 Functional Status: Reports: Pain Controlled - Review of Systems General: Reports: No Symptoms HEENT: Reports: No Symptoms Pulmonary: Reports: No Symptoms Cardiovascular: Reports: No Symptoms Gastrointestinal: Reports: No Symptoms Genitourinary: Reports: No Symptoms Musculoskeletal: Reports: No Symptoms Skin: Reports: No Symptoms Neurological: Reports: No Symptoms Psychiatric: Reports: No Symptoms - General Info Date of Service: 09/22/20 - Patient Data Vital Signs - Most Recent: Last Vital Signs Temp 36.0 C L 09/22/20 11:43 Pulse 75 09/22/20 11:43 Resp 16 09/22/20 11:43 BP 137/74 09/22/20 11:43 Pulse Ox 98 09/22/20 11:43 Weight - Most Recent: 136.078 kg I&O - Last 24 Hours: Intake & Output 09/22/20 09/22/20 09/22/20 06:59 14:59 22:59 Intake Total 100 Output Total Balance 10@ Lab Results - Last 24 Hours: Laboratory Results - last 24 hr 09/21/20 09/21/20 09/21/20 Range/Units 17:00 17:54 17:55 WBC (4.5-11.0) K/uL RBC (3.30-5.50) M/uL Hgb (12.0-15.0) g/dL Hct (36.0-48.0) % MCV (80-98) fL MCH (27-31) pg MCHC (32-36) % Plt Count (150-400) K/uL Urine Color Yellow (YELLOW) Urine Appearance Cloudy A (CLEAR) Urine pH 7.0 (5.0-8.0) Ur Specific [place] 1.020 (1.008-1.030) Urine Protein Negative (NEGATIVE) mg/dL Urine Glucose (UA) Negative (NEGATIVE) mg/dL Urine Ketones Negative (NEGATIVE) mg/dL Urine Occult Blood Moderate H (NEGATIVE) Urine Nitrite Negative (NEGATIVE) Urine Bilirubin Negative (NEGATIVE) Urine Urobilinogen 1.0 (0.2-1.0) EU/dL Ur Leukocyte Esterase Small H (NEGATIVE) Urine RBC 0-5 (0-5) Urine WBC 5-10 H (0-5) Ur Epithelial Cells Few Amorphous Sediment Not seen Urine Bacteria Moderate Urine Mucus Not seen Membrane Rupture Positive H (NEGATIVE) Urine Opiates Screen Negative (NEGATIVE) Ur Oxycodone Screen Negative (NEGATIVE) Urine Methadone Screen Negative (NEGATIVE) Ur Propoxyphene Screen Negative (NEGATIVE) Ur Barbiturates Screen Negative (NEGATIVE) Ur Tricyclics Screen Negative (NEGATIVE) Ur Phencyclidine Scrn Negative (NEGATIVE) Ur Amphetamine Screen Negative (NEGATIVE) U Methamphetamines Scrn Negative (NEGATIVE) Urine MDMA Screen Negative (NEGATIVE) U Benzodiazepines Scrn Negative (NEGATIVE) U Cocaine Metab Screen Negative (NEGATIVE) U Marijuana (THC) Screen Presumptive positive H (NEGATIVE) SARS CoV-2 RNA Rapid MARLENY 09/21/20 09/21/20 Range/Units 19:02 19:15 WBC 14.1 H (4.5-11.0) K/uL RBC 3.94 (3.30-5.50) M/uL Hgb 10.5 L (12.0-15.0) g/dL Hct 34.3 L (36.0-48.0) % MCV 87 (80-98) fL MCH 27 (27-31) pg MCHC 31 L (32-36) % Plt Count 299 (150-400) K/uL Urine Color (YELLOW) Urine Appearance (CLEAR) Urine pH (5.0-8.0) Ur Specific [place] (1.008-1.030) Urine Protein (NEGATIVE) mg/dL Urine Glucose (UA) (NEGATIVE) mg/dL Urine Ketones (NEGATIVE) mg/dL Urine Occult Blood (NEGATIVE) Urine Nitrite (NEGATIVE) Urine Bilirubin (NEGATIVE) Urine Urobilinogen (0.2-1.0) EU/dL Ur Leukocyte Esterase (NEGATIVE) Urine RBC (0-5) Urine WBC (0-5) Ur Epithelial Cells Amorphous Sediment Urine Bacteria Urine Mucus Membrane Rupture (NEGATIVE) Urine Opiates Screen (NEGATIVE) Ur Oxycodone Screen (NEGATIVE) Urine Methadone Screen (NEGATIVE) Ur Propoxyphene Screen (NEGATIVE) Ur Barbiturates Screen (NEGATIVE) Ur Tricyclics Screen (NEGATIVE) Ur Phencyclidine Scrn (NEGATIVE) Ur Amphetamine Screen (NEGATIVE) U Methamphetamines Scrn (NEGATIVE) Urine MDMA Screen (NEGATIVE) U Benzodiazepines Scrn (NEGATIVE) U Cocaine Metab Screen (NEGATIVE) U Marijuana (THC) Screen (NEGATIVE) SARS CoV-2 RNA Rapid MARLENY Negative Med Orders - Current: Current Medications Acetaminophen (Acetaminophen 325 Mg Tab, 50 Tab Bulk Bottle) 0 mg PO Q4H PRN PRN Reason: Pain Benzocaine (Benzocaine 20% Top [place] 56 Gm Bottle) 0 gm TOP Q4H PRN PRN Reason: PERINEAL PAIN Calcium Carbonate/Glycine (Calcium Carbonate 500 Mg Tab.Chew) 1,000 mg PO Q2H PRN PRN Reason: Indigestion Last Admin: 09/21/20 23:05 Dose: 1,000 mg Documented by: Docusate Sodium (Docusate Sodium 100 Mg Cap) 100 mg PO BID PRN PRN Reason: Constipation Emollient Ointment (Lanolin 100% Cream 40 Gm Tube) 0 gm TOP ASDIRECTED PRN PRN Reason: Other Lactated Ringer's (Ringers, Lactated) 1,000 mls @ 125 mls/hr IV ASDIRECTED DON Last Admin: 09/21/20 20:39 Dose: 125 mls/hr Documented by: Oxytocin/Sodium Chloride (Pitocin In Ns 20 Units/1,000 Ml) 20 unit in 1,000 mls @ 6 mls/hr IV TITRATE DON; Protocol Last Titration: 09/21/20 23:33 Dose: 3 munits/min, 9 mls/hr Documented by: Ibuprofen (Ibuprofen 200 Mg Tab, 24 Tab Bulk Bottle) 600 mg PO Q6H PRN PRN Reason: Pain Ondansetron HCl (Ondansetron 4 Mg/2 Ml Sdv) 4 mg IV Q4H PRN PRN Reason: Nausea/Vomiting Last Admin: 09/21/20 21:00 Dose: 4 mg Documented by: Sodium Chloride (Sodium Chloride 0.9% 10 Ml Syringe) 10 ml FLUSH ASDIRECTED PRN PRN Reason: Keep Vein Open Discontinued Medications Benzocaine (Benzocaine 20% Top [place] 56 Gm Bottle) 0 gm TOP ONETIME ONE Stop: 09/22/20 08:01 Last Admin: 09/22/20 09:57 Dose: Not Given Documented by: Carboprost Tromethamine (Carboprost Tromethamine 250 Mcg/1 Ml Amp) Confirm Ad ministered Dose 250 mcg .ROUTE .STK-MED ONE Stop: 09/21/20 23:13 Last Admin: 09/22/20 08:34 Dose: Not Given Documented by: Ephedrine Sulfate (Ephedrine 50 Mg/Ml Sdv) 10 mg IVPUSH ASDIRECTED PRN PRN Reason: Hypotension Fentanyl (Fentanyl 100 Mcg/2 Ml Sdv) 100 mcg IVPUSH Q1H PRN PRN Reason: Pain (moderate 4-6) Penicillin G Potassium 5 (millunits/ Sodium Chloride) 50 mls @ 100 mls/hr IV ONETIME ONE Stop: 09/21/20 19:40 Last Admin: 09/21/20 20:05 Dose: 100 mls/hr Documented by: Penicillin G Potassium 2.5 (millunits/ Sodium Chloride) 50 mls @ 100 mls/hr IV Q4H DON Last Admin: 09/22/20 08:34 Dose: Not Given Documented by: Lactated Ringer's (Ringers, Lactated) 1,000 mls @ 999 mls/hr IV .BOLUS ONE Stop: 09/22/20 03:05 Last Admin: 09/22/20 02:30 Dose: 999 mls/hr Documented by: Ropivacaine (Naropin 0.2%) Confirm Administered Dose 100 mls @ as directed .ROUTE .STK-MED ONE Stop: 09/22/20 03:10 Methylergonovine Maleate (Methylergonovine 0.2 Mg/1 Ml Amp) Confirm Administered Dose 0.2 mg .ROUTE .STK-MED ONE Stop: 09/21/20 23:13 Last Admin: 09/22/20 08:34 Dose: Not Given Documented by: Misoprostol (Misoprostol 200 Mcg Tab) Confirm Administered Dose 800 mcg .ROUTE .STK-MED ONE Stop: 09/21/20 23:13 Last Admin: 09/22/20 08:34 Dose: Not Given Documented by: Zaire Larkin (Zaire Larkin Medicated Pads 100/Jar) 1 pad TOP ONETIME ONE Stop: 09/22/20 08:01 Last Admin: 09/22/20 09:57 Dose: Not Given Documented by: - Interaction Disposition, : in Room with Family Interaction: Holding Feeding: Attempted ; Nursed Fair/Poor Support Person: - Recovery Exam Fundal Tone: Firm Fundal Level: 2 Fingerbreadths Below Umbilicus Fundal Placement: Midline Lochia Amount: Moderate Lochia Color: Rubra/Red Perineum Description: Intact, Minimal Bruising/Swelling Episiotomy/Laceration: Approximated Bladder Status: Voiding Urinary Elimination: Voided - Exam General: Alert, Oriented HEENT: Pupils Equal, Pupils Reactive Neck: Supple Lungs: Clear to Auscultation, Normal Respiratory Effort Cardiovascular: Regular Rate, Regular Rhythm GI/Abdominal Exam: Normal Bowel Sounds, Soft, Non-Tender, No Mass, Pelvis Stable Extremities: Normal Inspection, Normal Range of Motion, Non-Tender, No Pedal Edema, Normal Capillary Refill Skin: Warm, Dry, Intact Neurological: No New Focal Deficit Psy/Mental Status: Alert, Normal Affect, Normal Mood - Problem List & Annotations (1) GBS screening not performed SNOMED Code(s): 183992658 Code(s): CMU1054 - Status: Acute Current Visit: Yes (2) Post term over 40 weeks SNOMED Code(s): 652190903 Code(s): O48.0 - POST-TERM Status: Acute Current Visit: Yes (3) PROM with onset of labor more than 24 hours following rupture SNOMED Code(s): 157410046 Code(s): O42.10 - OSIRIS ROM, ONSET LABOR > 24 HR FOL RUPT, UNSP WEEKS OF GEST Status: Acute Current Visit: Yes Qualifiers: PROM gestational age: full term Qualified Code(s): O42.12 - Full-term premature rupture of membranes, onset of labor more than 24 hours following rupture (4) Limited care SNOMED Code(s): 494183696 Code(s): O09.30 - SUPRVSN OF PREG W INSUFFICIENT ANTENAT CARE, UNSP TRIMESTER Status: Acute Current Visit: Yes Qualifiers: Trimester: third trimester Qualified Code(s): O09.33 - Supervision of with insufficient care, third trimester (5) Obstetric vaginal laceration SNOMED Code(s): 519333377 Code(s): O71.4 - OBSTETRIC HIGH VAGINAL LACERATION ALONE Status: Acute Current Visit: Yes Qualifiers: Perineal laceration presence: without perineal laceration Qualified Code(s): O71.4 - Obstetric high vaginal laceration alone (6) started SNOMED Code(s): 978210452 Code(s): VFY1271 - Status: Acute Current Visit: Yes - Problem List Review Problem List Initiated/Reviewed/Updated: Yes - My Orders Last 24 Hours: My Active Orders 09/21/20 Dinner Regular Diet [DIET] 09/21/20 17:53 OB Check [OM.PC] Click to Edit 09/21/20 19:02 Patient Status [ADT] Routine Up ad Allegra [RC] ASDIRECTED Calcium Carbonate [Tums] 1,000 mg PO Q2H PRN Ondansetron [Zofran] 4 mg IV Q4H PRN Sodium Chloride 0.9% [Saline Flush] 10 ml FLUSH ASDIRECTED PRN DVT/VTE Prophylaxis Reflex [OM.PC] Routine Saline Lock Insert [OM.PC] Routine Resuscitation Status Routine 09/21/20 19:04 Notify Provider Vital Signs [RC] PRN 09/21/20 19:15 Lactated Ringers [Ringers, Lactated] 1,000 ml IV ASDIRECTED Oxytocin/Normal Saline [Pitocin in NS 20 Units/1,000 ML] 20 unit in 1,000 ml IV TITRATE 09/22/20 02:05 Epidural Catheter Management [OM.PC] Urgent 09/22/20 02:15 Insert Urinary Catheter [OM.PC] ASDIRECTED 09/22/20 07:21 Patient Status [ADT] Routine Vital Signs [RC] Q4H Consult to [place] [CONS] Routine Acetaminophen [Tylenol Bulk Bottle] See Dose Instructions PO Q4H PRN Docusate Sodium [Colace] 100 mg PO BID PRN Ibuprofen [Motrin Bulk Bottle] 600 mg PO Q6H PRN Lanolin [Lansinoh HPA] 0 gm TOP ASDIRECTED PRN Assess Lochia [WOMSER] Per Unit Routine Assess Uterine Involution [WOMSER] Per Unit Routine 09/22/20 07:23 Ice Therapy [OM.PC] Per Unit Routine Perineal Care [OM.PC] Per Unit Routine Sitz Bath [OM.PC] Per Unit Routine 09/22/20 08:30 Benzocaine [[id number] 20% [place]] 0 gm TOP Q4H PRN 09/22/20 16:36 CBC WITH AUTO DIFF [HEME] Routine 09/22/20 16:38 Ready for Discharge [RC] PER UNIT ROUTINE 09/23/20 05:11 CBC WITH AUTO DIFF [HEME] AM - Assessment Assessment:: 09/22/20 with vaginal delivery of ROP baby at 0644 2nd degree vaginal laceration without perineal laceration, repaired EBL 200 ml THC positive Limited care Refusing vaccinations O positive blood type Unknown GBS, 3 doses IV Abx given Plan: Routine cares and consult Anticipate 24-48 hour stay, patient being somewhat resistant to staying the full recommended stay 09/22/20 Patient doing well several hours and is requesting early discharge AVSS, FF, bleeding normal, no s/s of infection gong fair, minimal feedings now but worked with and plans to supplement with formula Voiding, ambulating, eating, pain controlled - Plan Plan:: 09/21/20 Assessment: here with prolonged ROM from a home setting at 40 3/7 Rupture occurred about 63 hours ago FHT's category 1 Afebrile Contractions every 8 minutes, moderate SVE 3100/-1 Plan: Discussion with patient recommending she stay in the hospital and she agrees. She also agrees to penicillin for unknown GBS and prolonged rupture of membranes. She also is counseled on pitocin titration for initiation of active labor due to prolonged rupture and she agrees. She would like to go as long as she can without pain medications. Plan will be to monitor closely for s/s of infection, start antibiotics and fluids, and start pitocin titration to get contractions 2-3 minutes apart. 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 She understands that it is recommended to monitor baby for 48 hours and that I am not willing to discharge baby early due to concern for prolonged rupture and unknown GBS status.
== END 2020-09-22 18:15 | disposition home or self-care (01) | DRG 806 ==
LOC: JP.OBCHECK 17:31 → JP.OB 19:02 → OBSVTOIN 09-22 06:44 → JP.MS 09-22 11:58
PROVIDERS: ADMIT Advanced Practice Midwife; ATTEND Advanced Practice Midwife
PROC: 10E0XZZ Delivery of Products of Conception, External Approach (ICD-10-PCS; principal; 2020-09-22)
PROC: 0KQM0ZZ Repair Perineum Muscle, Open Approach (ICD-10-PCS; 2020-09-22)
PROC: 3E0R3BZ Introduction of Anesthetic Agent into Spinal Canal, Percutaneous Approach (ICD-10-PCS; 2020-09-22)
PROC: 00HU33Z Insertion of Infusion Device into Spinal Canal, Percutaneous Approach (ICD-10-PCS; 2020-09-22)
DX: O42.12 Full-term premature rupture of membranes, onset of labor more than 24 hours following rupture (principal); O99.324 Drug use complicating childbirth; Z37.0 Single live birth; O71.4 Obstetric high vaginal laceration alone; O48.0 Post-term pregnancy; Z20.822 Contact with and (suspected) exposure to COVID-19; F12.90 Cannabis use, unspecified, uncomplicated; O76 Abnormality in fetal heart rate and rhythm complicating labor and delivery; Z3A.40 40 weeks gestation of pregnancy; Z88.8 Allergy status to other drugs, medicaments and biological substances
CPT/HCPCS: 36415; 51702; 80305-QW; 81001; 84112; 85025; 85027; 99211; A9270-GY; J2405; J2540; J2590; J2795; J7120; U0002

== ENCOUNTER 2022-08-04 07:10 | Day surgery (SDC) | payer MEDICAID, OTHER ==
[2022-08-04] MEDS ORDERED: Midazolam 1 MG/ML 2 ML SDV ONE (07:24)
[2022-08-04] MEDS ORDERED: Propofol 200 MG/20 ML SDV ONE ×2 (07:24→08:57)
[2022-08-04] MEDS ORDERED: fentaNYL 100 MCG/2 ML SDV ONE (07:24)
[2022-08-04] MEDS ORDERED: Sodium Chloride 0.9% 1,000 ML IV SCH (07:30)
== END 2022-08-04 10:30 | disposition home or self-care (01) ==
LOC: JP.SDS 07:10
PROVIDERS: ATTEND Surgery
DX: K52.9 Noninfective gastroenteritis and colitis, unspecified (principal); K21.9 Gastro-esophageal reflux disease without esophagitis; E66.9 Obesity, unspecified; Z91.048 Other nonmedicinal substance allergy status; Z68.42 Body mass index [BMI] 45.0-49.9, adult
CPT/HCPCS: 45380; 81025; 88305; J2250; J2704; J3010; J7030